=== PATIENT | male | born 1965 | race Caucasian/White ===

== ENCOUNTER 2022-05-26 04:33 | Day surgery (SDC) | payer OTHER ==
[2022-05-24 16:29] VITALS: BMI 23.6
[2022-05-26 12:12] VITALS: RESP 18; TEMP 97.1
[2022-05-26 12:58] VITALS: BP 109/52; PULSE 64
== END 2022-05-26 13:00 | disposition home or self-care (01) ==
LOC: JASU-ENDO 04:33
PROVIDERS: ATTEND Internal Medicine Gastroenterology
PROC: 0DBN8ZX Excision of Sigmoid Colon, Via Natural or Artificial Opening Endoscopic, Diagnostic (ICD-10-PCS; principal; 2022-05-26 11:15)
DX: Z12.11 Encounter for screening for malignant neoplasm of colon (principal); D12.7 Benign neoplasm of rectosigmoid junction
CPT/HCPCS: 88305-TC